=== PATIENT | female | born 1980 | race African-American/Black ===

== ENCOUNTER → 2016-02-23 | Outpatient (CLI) | payer BC ==
[~2016-02-23] MED LIST: ACET650S10; PRENTAB26 PO
[2016-02-23 18:39] LABS: GTGD 50 Grams
[2016-02-26 16:25] LABS: AFP CONCENTRATION 63.3 NG/ML; AFP MULTIPLE OF MEDIAN 2.19; AFPTS INSULIN DEP DIABETIC? NO; AFPTS MATERNAL WT 182 LBS; ALPHA-FETOPROTEIN RACE AFRICAN AMERICAN=B; ESTRIOL MULTIPLE OF MEDIAN 0.68; HISTORY OF NTD NO; INHIBIN A 141 PG/ML; INHIBIN A MOM 0.86; REPEAT SAMPLE? NO; hCG MULTIPLE OF MEDIAN 1.38
== END | disposition home or self-care (01) ==
LOC: C.LAB1850 15:11
PROVIDERS: ATTEND Obstetrics & Gynecology
DX: Z34.00 Encounter for supervision of normal first pregnancy, unspecified trimester (principal)

== ENCOUNTER 2016-03-26 23:47 | Emergency (ER) | payer BC, OTHER ==
[~2016-03-26] VITALS: Ht 157.5 cm; Wt 83.1 kg
[2016-03-26 23:55] VITALS: TEMP 36.9; Ht 157.5 cm; Wt 83.1 kg
[2016-03-27] MEDS ORDERED: PRENTAB26 PO ×2 (00:21)
[2016-03-27] MEDS ORDERED: SODIUM CHLORIDE 0.9% 1000ML 1,000 ML IV STA (00:32)
[2016-03-27 01:25] LABS: BASO % 0.1 %; BASO ABS # 0.02 K/uL (0-0.2); COMPLETE YES; EOS % 1.3 %; HEMATOCRIT 36.7 % (37-47); IG% 0.2 %; LYMPH % 12.1 %; LYMPH ABS # 2.07 K/uL (1.2-3.4); MEAN CORPUSCULAR HEMOGLOBIN 31.6 pg (25-34); MEAN CORPUSCULAR HGB CONC 35.1 g/dl (32-36); MEAN PLATELET VOLUME 10.7 fL (7.4-10.4); NEUT % 76.3 %; PLATELET COUNT 275 K/uL (130-400); RED BLOOD COUNT 4.08 M/uL (4.2-5.4); WHITE BLOOD COUNT 17.04 K/uL (4.8-10.8)
[2016-03-27 01:41] LABS: ALT/SGPT 20 U/L (12-78); BLOOD UREA NITROGEN 8 mg/dl (7-18); BUN/CREATININE RATIO 15.3 (10-20); CALCIUM 8.9 mg/dl (8.5-10.1); CARBON DIOXIDE 20 mmol/L (21-32); CHLORIDE 107 mmol/L (98-107); CREATININE 0.51 mg/dl (0.60-1.20); GLUCOSE 90 mg/dl (70-99); POTASSIUM 3.8 mmol/L (3.5-5.1); SODIUM 138 mmol/L (136-145)
[2016-03-27 01:44] LABS: ALKALINE PHOSPHATASE 83 U/L (45-117); AST/SGOT 18 U/L (15-37)
[2016-03-27 03:14] LABS: MANUAL MICROSCOPIC REQUIRED? NO; REVIEW REQ? NO; URINE APPEARANCE CLOUDY (CLEAR); URINE BILIRUBIN NEG (NEG); URINE COLOR YELLOW; URINE EPITHELIAL CELL AUTO 20-30 /lpf (0-5); URINE NITRITE NEG (NEG); URINE SPECIFIC GRAVITY 1.009 (1.000-1.030); UROBILINOGEN NEG (NEG); ZZUR CULT IF INDIC CLEAN CATCH YES
[2016-03-27 03:34] VITALS: BP 130/69; PULSE 81; O2SAT 98
--- NOTE | 2016-03-27 03:47 | EMERGENCY ROOM VISIT NOTE ---
History Report prepared by Shiraz: Brooke Quigley Under the Supervision of: Dr. Giuliano Kay M.D. First contact with patient: 00:02 Chief Complaint: ABDOMINAL PAIN Stated Complaint: ABDOMINAL PAIN,19WKS -CALLED L&D History of Present Illness The patient is a 35 year old female who presents to the Emergency Room with complaints of intermittent lower abdominal pain beginning last night. The patient reports that she is almost 20 weeks into her first . She states that she started to feel the abdominal pain last night but today it went away and when she lied down tonight and its started again. She reports that the pain lasts about 30 seconds and rates it as a 7/10 in severity. The patient notes that she is not sure if it is from constipation or gas but she was concerned so she came in tonight. The patient reports that she has not taken anything for the pain and has not been seen by her BANQUET [facility] COOK or PCP since yesterday. She notes that she has had 1 normal ultrasound and her next ultrasound is in 4 days on her 20 week. She complains of some mild back pain on both sides. Pt denies LOC, headache, fevers, chills, diaphoresis, visual changes , neck pain, chest pain, breathing difficulties, nausea, vomiting, melena, hematochezia, urinary symptoms, vaginal bleeding, abnormal vaginal discharge, numbness, weakness, lymphadenopathy, rash, or other complaints. Source of History: patient Onset: last night Position: abdomen (lower) Timing: intermittent Review of Systems See HPI for pertinent positives and negatives. A total of ten systems were reviewed and were otherwise negative. Past Medical & Surgical Medical Problems: (1) No Known Active Medical Problems Family History Cancer Diabetes mellitus Heart disease Hypertension Social History Smoking Status: Never Smoker Smokeless Tobacco Use: No Alcohol Use: none Housing Status: lives alone Occupation Status: employed Current/Historical Medications Scheduled Multivit/Min/Iron/Fol Ac/Pren ( Vitamin), 1 TAB PO DAILY Allergies Coded Allergies: NUTS (Verified Allergy, Severe, anaphylaxis, 03/27/16) Shellfish (Verified Allergy, Severe, anaphlyaxis, 03/27/16) Uncoded Allergies: EGGS (Allergy, Intermediate, face swelling, 03/27/16) Physical Exam Vital Signs Date Time Temp Pulse Resp B/P Pulse Ox O2 Delivery O2 Flow Rate FiO2 03/27/16 02:00 88 16 133/70 97 Room Air 03/26/16 23:55 36.9 97 18 126/85 97 Room Air Physical Exam GENERAL: Awake, alert, well-appearing, in no distress HENT: Normocephalic, atraumatic. Oropharynx unremarkable. EYES: Normal conjunctiva. Sclera non-icteric. NECK: Supple. No nuchal rigidity. FROM. No JVD. RESPIRATORY: Clear to auscultation. CARDIAC: Regular rate, normal rhythm. Extremities warm and well perfused. Pulses equal. ABDOMEN: Gravid abdomen. No tenderness to palpation. No rebound or guarding. No masses. RECTAL: Deferred. MUSCULOSKELETAL: Chest examination reveals no tenderness. The back is symmetrical on inspection without obvious abnormality. There is no CVA tenderness to palpation. No joint edema. LOWER EXTREMITIES: Calves are equal size bilaterally and non-tender. No edema. No discoloration. NEURO: Normal sensorium. No sensory or motor deficits noted. SKIN: No rash or jaundice noted. Medical Decision & Procedures Laboratory Results 03/27/16 01:11 Red Blood Count 4.08, Mean Corpuscular Volume 90.0, Mean Corpuscular Hemoglobin 31.6, Mean Corpuscular Hemoglobin Concent 35.1, Mean Platelet Volume 10.7, Neutrophils (%) (Auto) 76.3, Lymphocytes (%) (Auto) 12.1, Monocytes (%) (Auto) 10.0, Eosinophils (%) (Auto) 1.3, Basophils (%) (Auto) 0.1, Neutrophils # (Auto ) 12.98, Lymphocytes # (Auto) 2.07, Monocytes # (Auto) 1.70, Eosinophils # (Auto ) 0.23, Basophils # (Auto) 0.02 03/27/16 01:11 Test 03/27/16 00:10 03/27/16 01:11 Urine Color YELLOW Urine Appearance CLOUDY (CLEAR) Urine pH 7.0 (4.5-7.5) Urine Specific [place] 1.009 (1.000-1.030) Urine Protein NEG (NEG) Urine Glucose (UA) NEG (NEG) Urine Ketones NEG (NEG) Urine Occult Blood 2+ (NEG) Urine Nitrite NEG (NEG) Urine Bilirubin NEG (NEG) Urine Urobilinogen NEG (NEG) Urine Leukocyte Esterase LARGE (NEG) Urine WBC (Auto) >30 /hpf (0-5) Urine RBC (Auto) 10-30 /hpf (0-4) Urine Hyaline Casts (Auto) 10-30 /lpf (0-5) Urine Epithelial Cells (Auto) 20-30 /lpf (0-5) Urine Bacteria (Auto) NEG (NEG) White Blood Count 17.04 K/uL (4.8-10.8) Red Blood Count 4.08 M/uL (4.2-5.4) Hemoglobin 12.9 g/dL (12.0-16.0) Hematocrit 36.7 % (37-47) Mean Corpuscular Volume 90.0 fL (80-100) Mean Corpuscular Hemoglobin 31.6 pg (25-34) Mean Corpuscular Hemoglobin Concent 35.1 g/dl (32-36) Platelet Count 275 K/uL (130-400) Mean Platelet Volume 10.7 fL (7.4-10.4) Neutrophils (%) (Auto) 76.3 % Lymphocytes (%) (Auto) 12.1 % Monocytes (%) (Auto) 10.0 % Eosinophils (%) (Auto) 1.3 % Basophils (%) (Auto) 0.1 % Neutrophils # (Auto) 12.98 K/uL (1.4-6.5) Lymphocytes # (Auto) 2.07 K/uL (1.2-3.4) Monocytes # (Auto) 1.70 K/uL (0.11-0.59) Eosinophils # (Auto) 0.23 K/uL (0-0.5) Basophils # (Auto) 0.02 K/uL (0-0.2) RDW Standard Deviation 42.3 fL (36.4-46.3) RDW Coefficient of Variation 13.0 % (11.5-14.5) Immature Granulocyte % (Auto) 0.2 % Immature Granulocyte # (Auto) 0.04 K/uL (0.00-0.02) Anion Gap 11.0 mmol/L (3-11) Est Creatinine Clear Calc Drug Dose 155.3 ml/min Estimated GFR () 145.4 Estimated GFR (Non- 125.5 BUN/Creatinine Ratio 15.3 (10-20) Calcium Level 8.9 mg/dl (8.5-10.1) Total Bilirubin 0.1 mg/dl (0.2-1) Direct Bilirubin < 0.1 mg/dl (0-0.2) Aspartate Amino Transf (AST/SGOT) 18 U/L (15-37) Alanine Aminotransferase (ALT/SGPT) 20 U/L (12-78) Alkaline Phosphatase 83 U/L (45-117) Total Protein 7.4 gm/dl (6.4-8.2) Albumin 2.9 gm/dl (3.4-5.0) Lipase 303 U/L (73-393) Laboratory results reviewed by me Medications Administered Medications (Trade) Dose Ordered Sig/Narcisa Route Start Time Stop Time Status Last Admin Dose Admin Sodium Chloride (Nss 1000ml) 1,000 ml @ 999 mls/hr Q1H1M STAT IV 03/27/16 00:32 03/27/16 01:32 DC 03/27/16 00:32 999 MLS/HR ED Course 0015: The patient was evaluated in room B5. A complete history and physical exam was performed. 0032: Sodium Chloride 1000 ml @ 999 mls/hr IV. Medical Decision Triage Nursing notes reviewed. The patient's presentation and history were concerning for intermittent abdominal pains and . Etiologies such as complication of appendicitis, diverticulitis, obstruction, inflammatory bowel disease, renal colic, PUD, biliary pathology, pancreatitis, mesenteric ischemia, aortic pathology, infections, genitourinary, UTI, perforated viscus, as well as others were entertained. Patient was evaluated. She had no peritoneal findings on examination. Clinically she was doing well. Blood work is obtained. The patient was hydrated with normal saline. She declined analgesia. The patient was taken to ultrasound for further imaging. The patient had some white and red cells noted on urinalysis. No bacteria. CBC revealed a leukocytosis. Chemistry panel is otherwise unremarkable. Ultrasound imaging did reveal oligohydramnios as well as size and dates discrepancy. Renal ultrasound did not reveal any evidence of hydronephrosis. Bilateral ureteral jets were seen. Due to the abnormal ultrasound consultation was made with BANQU[facility] COOK. The patient will be taken to OB/ PERSONAL [employer]ES INSURANCE AGENT for further evaluation. I did inform the patient and her on the findings. The patient initially noted some minimal discharge however on further questioning it sounds like she has had more than just a little discharge for several weeks. The patient was taken to L&D for further evaluation. The chart was completed utilizing [employer] Speech voice recognition software. Grammatical errors, random word insertions, pronoun errors, and incomplete sentences are an occasional consequence of this system due to software limitations, ambient noise, and hardware issues. Any formal questions or concerns about the content, text, or information contained within the body of this dictation should be directly addressed to the physician for clarification. Consults Time Called: [phone] Consulting Physician: Dr. Hitchcock Returned Call: [phone] Discussed the patient's presentation history and findings. The patient will be taken to L&D for further evaluation due to the uterine date and size discrepancies as well as the oligohydramnios. Impression Primary Impression: Second trimester Additional Impressions: Oligohydramnios Uterine size-date discrepancy in second trimester Scribe Attestation The scribe's documentation has been prepared under my direction and personally reviewed by me in its entirety. I confirm that the note above accurately reflects all work, treatment, procedures, and medical decision making performed by me. Departure Information Dispostion Being Evaluated By Surgeon Ritu Bedolla MD (PCP) Patient Instructions [facility] Problem Qualifiers
[2016-03-27] MEDS ORDERED: ACET650S10 ×2 (06:27)
--- NOTE | 2016-03-27 07:21 | DIAGNOSTIC IMAGING REPORT ---
ULTRASOUND KIDNEYS AND BLADDER CLINICAL HISTORY: Lower abdominal pain. Hematuria. COMPARISON STUDY: No priors. TECHNIQUE: Real-time, grayscale, and color flow sonography of the kidneys and bladder is performed. Images are reviewed in the transverse and longitudinal planes. FINDINGS: Kidneys: The kidneys are normal in size and echotexture. The right kidney measures 12.4 x 5.8 x 5.5 cm and the left kidney measures 10.7 x 5.8 x 5.4 cm. There is no hydronephrosis. No shadowing renal calculi are identified. A 1.6 cm cyst is noted in the interpolar left kidney. There is no sonographic evidence of solid mass lesion. No perinephric fluid is identified. Bladder: The bladder is normal in appearance. Bilateral ureteral jets were seen. IMPRESSION: Unremarkable sonographic assessment of the kidneys and bladder. Electronically signed by: Jon Bermudez M.D. 03/27/2016 7:20 AM Dictated Date/Time: 03/27/2016 7:19 AM
--- NOTE | 2016-03-27 07:38 | DIAGNOSTIC IMAGING REPORT ---
LIMITED (US) CLINICAL HISTORY: Lower abd pain, 20 weeks . COMPARISON STUDY: No previous studies for comparison. TECHNIQUE: Transabdominal transvaginal sonography of the pelvis was performed. FINDINGS: A single intrauterine gestation is noted. Please note that a dedicated anatomical survey was not performed. heart rate is normal at 155 bpm. No significant amniotic fluid is identified. The findings represent severe oligohydramnios. presentation is cephalic. The placenta is located anteriorly. The cervix is significantly shortened, measuring 1.1 cm in length. The cervix is effaced. There is a 2.2 x 1.3 cm echogenic abnormality overlying the internal cervical os. This is indeterminate. IMPRESSION: 1. Single intrauterine gestation with normal heart rate of 155 bpm. Estimated gestational age on this exam is 17 weeks and 5 days which represents a discrepancy with the estimated gestational age by last menstrual period. 2. No significant amniotic fluid identified. The findings represent severe oligohydramnios. Obstetrical consultation is recommended. 3. Indeterminate 2.2 x 1.3 cm echogenic abnormality overlying the internal cervical os. This could reflect a soft tissue mass, echogenic material or abnormality associated with the head. Electronically signed by: Jose Dale M.D. 03/27/2016 7:37 AM Dictated Date/Time: 03/27/2016 7:29 AM
== END 2016-03-27 04:12 | disposition still patient (30) ==
LOC: C.EDB 23:54
DX: O41.02X0 Oligohydramnios, second trimester, not applicable or unspecified (principal); O26.842 Uterine size-date discrepancy, second trimester; O26.892 Other specified pregnancy related conditions, second trimester; R10.30 Lower abdominal pain, unspecified; Z3A.19 19 weeks gestation of pregnancy; Z83.3 Family history of diabetes mellitus; Z82.49 Family history of ischemic heart disease and other diseases of the circulatory system

== ENCOUNTER 2016-03-27 04:14 | Inpatient (IN) | payer BC ==
[~2016-03-27] VITALS: Ht 157.5 cm; Wt 83.0 kg
[~2016-03-27 04:14] MED LIST changes: -ACET650S10
[2016-03-27] MEDS ORDERED: ACETAMINOPHEN 500 MG TAB PO STA (05:49)
[2016-03-27] MEDS ORDERED: ACETAMINOPHEN 500 MG TAB PO ONE (05:53)
[2016-03-27] MEDS ORDERED: ACET650S10 ×2 (06:27)
[2016-03-27 06:29] VITALS: Ht 157.5 cm; Wt 83.0 kg
[2016-03-27] MEDS ORDERED: LACTATED RINGER'S 1000ML 1,000 ML IV PRN (11:14)
[2016-03-27] MEDS: MISOPROSTOL 200 MCG TAB PO SCH ×2 (11:36→16:00)
[2016-03-27 11:56] LABS: HEMATOCRIT 39.3 % (37-47); MEAN CELL VOLUME 91.6 fL (80-100); MEAN CORPUSCULAR HEMOGLOBIN 32.4 pg (25-34); MEAN CORPUSCULAR HGB CONC 35.4 g/dl (32-36); MEAN PLATELET VOLUME 10.8 fL (7.4-10.4); PLATELET COUNT 280 K/uL (130-400); RED BLOOD COUNT 4.29 M/uL (4.2-5.4)
[2016-03-27] MEDS: LACTATED RINGER'S 1000ML 1,000 ML IV SCH ×2 (12:25→14:40)
[2016-03-27] MEDS ORDERED: BUTORPHANOL TARTRATE 1 MG/ML VIAL ONE (12:36)
[2016-03-27] MEDS ORDERED: BUTORPHANOL TARTRATE 1 MG/ML VIAL IV PRN (12:45)
[2016-03-27] MEDS ORDERED: BUPIVACAINE 0.25% 30 ML VIAL ONE (13:09)
[2016-03-27] MEDS ORDERED: EpHEDrine SULFATE INJ 50 MG/ML AMP ONE (13:09)
[2016-03-27] MEDS ORDERED: FENTANYL 2MCG/ML ROPIV 1.25MG/ML 100ML BAG EPI ONE (13:10)
[2016-03-27] MEDS ORDERED: FENTANYL CITRATE INJ 50 MCG/1 ML 2 ML VIAL ONE (13:10)
[2016-03-27] MEDS ORDERED: LACTATED RINGER'S 1000ML 500 ML IV PRN (13:51)
[2016-03-27] MEDS ORDERED: NALOXONE HCL INJ 1 MG in SODIUM CHLORIDE 0.9% 1000ML 1,000 ML IV PRN (13:51)
[2016-03-27] MEDS ORDERED: EpHEDrine SULFATE INJ 50 MG/ML AMP IV PRN (14:00)
[2016-03-27] MEDS ORDERED: NALOXONE HCL INJ 0.4 MG/1 ML VIAL/CARP IV PRN (14:00)
[2016-03-27] MEDS ORDERED: DiphenhydrAMINE HCL 50 MG/ML VIAL IV PRN (14:00)
[2016-03-27] MEDS ORDERED: ONDANSETRON INJ 2 MG/ML 2 ML VIAL IV PRN (14:00)
[2016-03-27] MEDS ORDERED: FENTANYL 2MCG/ML ROPIV 1.25MG/ML 100ML BAG EPI PRN (14:00)
[2016-03-27] MEDS ORDERED: NALBUPHINE HCL INJ 10 MG/ML AMP IV PRN (14:00)
[2016-03-27] MEDS ORDERED: OXYTOCIN 30 UNITS/500ML NSS IV ONE (16:19)
[2016-03-27] MEDS ORDERED: IBUPROFEN 600 MG TAB PO PRN (17:15)
[2016-03-27] MEDS ORDERED: ACETAMINOPHEN/CODEINE 300/30MG TAB PO PRN ×2 (17:15)
[2016-03-27] MEDS ORDERED: ACETAMINOPHEN 325 MG TAB PO PRN (17:15)
[2016-03-27] MEDS ORDERED: OXYTOCIN 30 UNITS/500ML NSS IV PRN (17:15)
--- NOTE | 2016-03-27 19:42 | Anesthesia Procedure Note ---
Anesthesia Epidural Removal Nt Date & Time Mar 27, 2016 at 19:42 Vital Signs Pain Intensity: 0.0 Notes Mental Status: alert / awake / arousable, participated in evaluation Nausea / Vomiting: adequately controlled Pain: adequately controlled Airway Patency, RR, SpO2: stable & adequate BP & HR: stable & adequate Hydration State: stable & adequate Neuraxial Anesthesia: was administered Anesthetic Complications: no major complications apparent, pt satisfied with anesthetic care Epidural: removed without complications, with tip intact
--- NOTE | 2016-03-28 02:31 | DELIVERY SUMMARY ---
DATE OF OPERATION: 03/27/2016 The patient is a 35-year-old 1, para 0, black female, EDC of 08/16/2016, who presented at 19-4/7 weeks with complaint of abdominal pain. Ultrasound revealed that there was no amniotic fluid around the baby. There was a heart rate of 150. Because of the dire nature of the rupture of membranes and the early gestation, the would not continue without a non-viable fetus. The patient agreed to Cytotec induction. Shortly after the Cytotec was given orally, she began to have abdominal cramping. Epidural was started and she had excellent relief. The fetus was at vertex, intact with some random movements present. heart rate had stopped at 1616. The placenta delivered approximately 1 hour after delivery of the , intact. Estimated blood loss was 150 mL. Mother was doing well after delivery. I attest to the content of the Intraoperative Record and any orders documented therein. Any exceptio ns are noted below.
--- NOTE | 2016-03-28 07:28 | Discharge Instructions ---
Discharge Instructions Admission Reason for Admission: PROM Discharge Discharge Diagnosis / Problem: delivery at 19 weeks Discharge Goals Goal(s): Therapeutic intervention Activity Recommendations Activity Limitations: per Instructions/Follow-up section . Instructions / Follow-Up Instructions / Follow-Up . ACTIVITY RECOMMENDATIONS: * Vaginal rest (no tampons, douching, intercourse) until after doctor 's visit. * control as discussed with doctor. * Wear a bra for 24 hours/day for comfort. SPECIAL CARE INSTRUCTIONS: Medications: * vitamins, one tablet daily. Continue taking until prescription is complete. Call you doctor if: * Temperature greater than or equal to 100.4 degrees F or 38.0 degrees C. * Bleeding becomes heavier than the heaviest part of your period - saturating a sanitary pad within an hour. * Passing large clots. * Unrelieved pain. * Bleeding has a foul smelling odor. * Signs and symptoms of phlebitis: leg pain, warm, red or swollen area on leg. incision has increased pain, redness, swelling, presence of any drainage, or if the incision starts to open up. FOLLOW UP VISIT: If appointment is not already scheduled: Please call doctor's office to schedule a follow-up appointment. Current Hospital Diet Patient's current hospital diet: Regular Diet Discahrge Diet Recommended Diet: Regular Diet Pending Studies Studies pending at discharge: no Medical Emergencies . Who to Call and When: Medical Emergencies: If at any time you feel your situation is an emergency, please call 911 immediately. . Non-Emergent Contact Non-Emergency issues call your: Employment Service Specialist . . "Provider Documentation" section prepared by Jenny Gonzalez. VTE Core Measure Inpt VTE Proph given/why not?: Treatment not indicated
--- NOTE | 2016-03-28 07:30 | Progress Note ---
Subjective Mar 28, 2016. Subjective conversation w/ patient, conversation w/ family Voiding: no voiding problems Passing Gas: Yes Diet Tolerance: Regular Diet Lochia: Small Pain: no pain or cramping Review of Systems Constitutional: No chills, No fatigue, No fever, No problem reported, No sweats , No weakness, No weight loss Breast: No breast lump, No breast pain, No change in shape, No nipple discharge , No problem reported, No see HPI Abdomen: No GI bleeding, No constipation, No diarrhea, No nausea, No pain, No problem reported, No vomiting Female : No abnormal vaginal bleeding, No dysuria, No hematuria, No incontinence, No problem reported, No see HPI, No urinary frequency, No vaginal discharge Objective Physical Exam General Appearance: WELL-APPEARING, NO APPARENT DISTRESS Abdomen: non tender, soft Fundus: Firm, Non-Tender, Relation to Umbilicus (3 below U) Extremities: no calf tenderness Laboratory Results Last 24 Hours Test 03/27/16 11:37 White Blood Count 15.30 K/uL Red Blood Count 4.29 M/uL Hemoglobin 13.9 g/dL Hematocrit 39.3 % Mean Corpuscular Volume 91.6 fL Mean Corpuscular Hemoglobin 32.4 pg Mean Corpuscular Hemoglobin Concent 35.4 g/dl RDW Standard Deviation 43.7 fL RDW Coefficient of Variation 13.2 % Platelet Count 280 K/uL Mean Platelet Volume 10.8 fL Assessment and Plan Problem List Medical Problems: (1) Oligohydramnios Status: Acute (2) Second trimester Status: Acute (3) Uterine size-date discrepancy in second trimester Status: Acute Day#: 1 Continue Routine Care: stable course grieving appropriately will follow up in 2 weeks.
== END 2016-03-28 09:44 | disposition home or self-care (01) | DRG 775 ==
LOC: C.OPB 04:14 → C.LD 04:14 → C.OPB 06:12
PROVIDERS: ADMIT Obstetrics & Gynecology; ATTEND Obstetrics & Gynecology
PROC: 10E0XZZ Delivery of Products of Conception, External Approach (ICD-10-PCS; principal; 2016-03-27)
PROC: 3E0P7GC Introduction of Other Therapeutic Substance into Female Reproductive, Via Natural or Artificial Opening (ICD-10-PCS; principal; 2016-03-27)
DX: O42.912 Preterm premature rupture of membranes, unspecified as to length of time between rupture and onset of labor, second trimester (principal); Z37.0 Single live birth; Z3A.19 19 weeks gestation of pregnancy; O75.89 Other specified complications of labor and delivery; D72.829 Elevated white blood cell count, unspecified; O41.02X0 Oligohydramnios, second trimester, not applicable or unspecified; O26.842 Uterine size-date discrepancy, second trimester; O26.892 Other specified pregnancy related conditions, second trimester; R10.30 Lower abdominal pain, unspecified; Z83.3 Family history of diabetes mellitus; Z82.49 Family history of ischemic heart disease and other diseases of the circulatory system